=== PATIENT | female | born 1960 | race Caucasian/White ===

== ENCOUNTER 2019-08-07 09:34 | Day surgery (SDC) | payer OTHER ==
[~2019-08-07 09:34] MED LIST: Buffered Lidocaine 1% SYRIN* 1 ML/SYRINGE INTRADERM ONE; Lactated Ringers 1000 ML Bag* 1,000 ML IV SCH
[2019-08-07] MEDS ORDERED: Midazolam* 1 MG/ML 2 ML VIAL (2 MG) ONE (10:55)
[2019-08-07] MEDS ORDERED: Propofol* 10 MG/ML 20 ML BTL ONE (10:55)
[2019-08-07] MEDS ORDERED: Lidocaine 2% PF * 5 ML VIAL ONE (10:56)
[2019-08-07] MEDS ORDERED: Bupivacaine 0.25% SDV* 30 ML ONE (12:02)
[2019-08-07] MEDS ORDERED: Bupivacaine 0.5% SDV PF* 30ML VIAL ONE (12:04)
[2019-08-07] MEDS ORDERED: Ketorolac INJ* 30 MG/ML 1 ML VIAL IV PRN (12:33)
[2019-08-07] MEDS ORDERED: oxyCODONE TAB* 5 MG TAB PO PRN (12:33)
[2019-08-07] MEDS ORDERED: Naloxone* 0.4 MG/ML 1 ML VIAL IV PRN ×2 (12:33→12:35)
[2019-08-07] MEDS ORDERED: Acetaminophen TAB* 325 MG PO PRN (12:33)
[2019-08-07 13:46] VITALS: BP 110/67
--- NOTE | 2019-08-08 02:22 | OP ---
OPERATIVE REPORT: DATE OF OPERATION: 08/07/19 - [place] DATE OF : 64 SURGEON: David Torres MD. PRODUCT SUPPORT SPECIALIST: JUAN Etienne. ANESTHESIOLOGIST: Dr. Cabrera. ANESTHESIA: Local MAC. PRE-OP DIAGNOSIS: Left severe trigger thumb. POST-OP DIAGNOSIS: Left severe trigger thumb. OPERATIVE PROCEDURE: Left trigger thumb release. INDICATIONS: Ms. Garcia has very severe trigger thumb. She has difficulty bending and we talked about treatment options. She wanted to proceed with surgery. ESTIMATED BLOOD LOSS: 2 mL. COMPLICATIONS: None. FINDINGS: See above and below. DESCRIPTION OF PROCEDURE: Ms. Garcia was seen in the preoperative holding area. The correct site, side, and procedure were identified. We came back to the operating room where 0.25% Marcaine was infiltrated about the operative area. The arm was prepped and draped in the usual fashion and a time out was performed. The arm was exsanguinated and the tourniquet inflated. A 1 cm transverse incision was made in the MCP joint flexion crease. The full thickness flaps were raised off the A1 dante. Ragnell retractors were placed. The A1 dante was incised longitudinally. The release was completed distally and proximally with tenotomy scissors. I had her flex and extend the thumb multiple times. There was no triggering. The wound was irrigated out and closed with 4-0 nylon suture. Soft dressing was applied and she was taken to the recovery room in stable condition. [id number]/CPS #: [id number] [facility]
== END 2019-08-07 13:22 | disposition home or self-care (01) ==
LOC: OREAST 09:34
PROVIDERS: ATTEND Orthopaedic Surgery Hand Surgery
DX: M65.312 Trigger thumb, left thumb (principal); E78.5 Hyperlipidemia, unspecified; E55.9 Vitamin D deficiency, unspecified; N18.9 Chronic kidney disease, unspecified
CPT/HCPCS: J2250; J2704; J3490